=== PATIENT | male | born 1965 | race Caucasian/White ===

== ENCOUNTER 2016-08-16 09:47 | Emergency (ER) | payer OTHER ==
[~2016-08-16] VITALS: Ht 185.4 cm; Wt 76.5 kg
[~2016-08-16 09:47] MED LIST: IBUPROFEN400 MG PO
[2016-08-16 10:22] VITALS: BP 148/82
[2016-08-16] MEDS ORDERED: NORCO 5/3251 TABLET PO (11:20)
== END 2016-08-16 11:58 | disposition home or self-care (01) ==
LOC: EME 09:47
DX: K40.90 Unilateral inguinal hernia, without obstruction or gangrene, not specified as recurrent (principal)
CPT/HCPCS: 99281; 99283